=== PATIENT | male | born 1965 | race Caucasian/White ===

== ENCOUNTER 2018-01-05 12:04 | Day surgery (SDC) | payer OTHER ==
[2018-01-01 17:14] VITALS: BMI 34.4
[~2018-01-05 12:04] MED LIST: LACTATED RINGERS 1,000 ML IV SCH
[2018-01-05 12:52] VITALS: RESP 18; TEMP 97.9
[2018-01-05] MEDS ORDERED: LIDOCAINE 1% 20 ML VIAL (10MG/ML) FOR IV START INTRADERMA ONE (12:56)
[2018-01-05] MEDS ORDERED: PROPOFOL 10 MG/ML 20 ML VIAL IV ONE (14:31)
[2018-01-05] MEDS ORDERED: LIDOCAINE 1% INJ 10MG/ML (20 ML MDV) ONE (14:31)
[2018-01-05] MEDS ORDERED: LACTATED RINGERS 1,000 ML IV ONE (14:51)
--- NOTE | 2018-01-05 14:57 | P.PCN ---
Date of Procedure: 01/05/18 Procedure(s) Performed: Procedure: Total colonoscopy. Preoperative diagnosis: Screening for neoplasia. Postoperative diagnosis: Exam within normal limits. Preparation: HalfLytely prep. Sedation: Was provided by anesthesia. Brief clinical history: The patient is a 52-year-old male who is scheduled for this evaluation for screening for neoplasia age being his risk factor. There is no family history of colon cancer. At this time, he has no abdominal complaints, bleeding or anemia. This would be his first colonoscopy. Procedure: With the patient on his left lateral decubitus position and after informed consent and adequate sedation, the perianal area was inspected and it did not show any fissures or fistulas. There were no masses felt on digital rectal examination. The Olympus CFQ 160L video colonoscope was then inserted in the rectum in the usual fashion and advanced to the cecum. The mucosa appeared healthy. There were no obvious polyps or tumors seen or any obvious diverticular disease or other pathology. I retroflexed the endoscope in the rectum before the endoscope was withdrawn. The patient tolerated the procedure well. Plan: The patient was reassured. He will follow up with you as planned and I recommended repeat exam in 10 years.
[2018-01-05 15:13] VITALS: BP 142/71; PULSE 60
== END 2018-01-05 15:23 | disposition home or self-care (01) ==
LOC: ORWHC2ENDO 12:04
DX: Z12.11 Encounter for screening for malignant neoplasm of colon (principal); I10 Essential (primary) hypertension; F17.200 Nicotine dependence, unspecified, uncomplicated; Z79.899 Other long term (current) drug therapy
CPT/HCPCS: J2001; J2704; G0121

== ENCOUNTER → 2018-05-16 | Outpatient (CLI) | payer OTHER | END | disposition home or self-care (01) | LOC: LABWHC1 09:29 | PROVIDERS: ATTEND Family Medicine | DX: Z13.88 Encounter for screening for disorder due to exposure to contaminants (principal) | CPT/HCPCS: 36415; 83655 ==

== ENCOUNTER → 2019-11-24 | Outpatient (CLI) | payer OTHER ==
--- NOTE | 2019-11-29 08:26 | MR ---
EXAMINATION TYPE: MR Prostate wo/w con DATE OF EXAM: 11/24/2019 COMPARISON: None. INDICATION: prostate cancer PSA: 4.0 ng/ml on May 04, 2019 Recent Biopsy and Date: July 28, 2019. Pathology Report (If Applicable): Right lateral apex Anthony score 3+4 = 7 ; 20 percent tissue 2 mm l ength. Left lateral base Anthony score 3+4 = 7; 60% the tissue 6 mm in length. Left lobe mid Anthony score 3+4 = 7, 10% less than 1 mm length. TECHNIQUE: Examination was performed using a 3T MRI without an endorectal coil. Multiparametric imaging was perf ormed with T2 mutliplanar sequences, axial diffusion weighted imaging and dynamic contrast enhanced i maging, utilizing 11 mL intravenous Gadavist gadolinium contrast. FINDINGS: There is no clinically significant cancer identified. PROSTATE VOLUME: 3.9 cm SI x 3.3 cm AP x 4.3 cm LR Vol= 29.0 cc PSA DENSITY: 3.48 ng/ml/cc T1-weighted images show no significant residual postbiopsy hemorrhage. Peripheral zone has suspicious area lateral aspect right lateral base to mid segment showing focal m ild to moderate hypointense signal on ADC mapping image 116 with mild hyperintense signal on diffusio n weighted images measuring roughly 6 x 4 mm. Dynamic postcontrast images show no suspicious vascular ity with marked uptake and washout. Predominantly mild gradual enhancement noted. Central transition zone is somewhat small in size and heterogeneous in appearance. No definitive are a of at least moderately suspicious hypointensity. Seminal vesicles are all within normal limits. Prostatic capsule maintained. No adjacent adenopathy s een. Bladder poorly distended with trabeculation and mild to moderate wall thickening up to 9 mm. Visualized bowel shows no suspicious dilatation. Visualized osseous structures are intact. There is s uspected moderate to large sized fat-containing inguinal hernias bilaterally. No concerning pelvic fl uid collection. Moderate to advanced disc space narrowing L5-S1 level with disc desiccation. IMPRESSION: A focus of clinically significant cancer is not identified. Highest Assessment Category: 3 (peripheral zone lesion MRI Stage: T1c N0 M0 based on review of pelvic images. False negative rates for MRI range from 5-20% depending on risk profile. Assessment Categories: 1 ? Very low (clinically significant cancer is highly unlikely to be present) 2 ? Low (clinically significant cancer is unlikely to be present) 3 ? Intermediate (the presence of clinically significant cancer is equivocal) 4 ? High (clinically significant cancer is likely to be present) 5 ? Very high (clinically significant cancer is highly likely to be present) Locations: PZ = peripheral zone; TZ = transition zone CZ=central zone; AFS = anterior fibromuscular stroma a=anterior half (i.e. PZa=anterior half of peripheral zone); pm= posterior medial (i.e PZpm) pl = postero-lateral (i.e. PZpl); p = posterior half (i.e. TZp) ; a = anterior half (i.e TZa or P Za) Other: N=no or no; E= equivocal; Y=yes EPE = extraprostatic extension NVB = neurovascular bundle NA = not applicable/not available
== END | disposition home or self-care (01) ==
LOC: RADMRIMAIN 06:54
PROVIDERS: ATTEND Urology
DX: C61 Malignant neoplasm of prostate (principal)
CPT/HCPCS: 72197; A9585

== ENCOUNTER → 2020-01-28 | Outpatient (CLI) | payer OTHER ==
[2020-01-28 15:38] LABS: African American GFR (CKD) >90 (>60 ml/min/1.73 sqM); Anion Gap 8 mmol/L; Blood Urea Nitrogen 16 mg/dL (9-20); Calcium 9.7 mg/dL (8.4-10.2); Carbon Dioxide 27 mmol/L (22-30); Chloride 103 mmol/L (98-107); Glucose 94 mg/dL (74-99); Non-African American GFR(CKD) >90 (>60 ml/min/1.73 sqM); Potassium 4.5 mmol/L (3.5-5.1); Sodium 138 mmol/L (137-145)
--- NOTE | 2020-01-28 15:42 | XR ---
EXAMINATION TYPE: XR chest 2V DATE OF EXAM: 01/28/2020 COMPARISON: NONE HISTORY: Presurgical study. TECHNIQUE: Frontal and lateral views of the chest are obtained. FINDINGS: There is chronic parenchymal change without suspicious focal air space opacity, pleural ef fusion, or pneumothorax seen. The cardiac silhouette size is within normal limits. There is straight ening of spine with peak curvature near the thoracolumbar junction on lateral view. Cholecystectomy c lips are seen on lateral view. IMPRESSION: No acute cardiopulmonary process.
[2020-01-28 15:43] LABS: Basophils % (A) 0 %; Eosinophils # (A) 0.2 k/uL (0-0.7); Eosinophils % (A) 2 %; HCT 46.7 % (39.0-53.0); HGB 15.8 gm/dL (13.0-17.5); Lymphocytes # (A) 4.6 k/uL (1.0-4.8); Lymphocytes % (A) 43 %; MCH 32.2 pg (25.0-35.0); MCHC 33.8 g/dL (31.0-37.0); MCV 95.3 fL (80.0-100.0); Mean Platelet Volume 7.2; Monocytes # (A) 0.7 k/uL (0-1.0); Monocytes % (A) 7 %; Neutrophils # (A) 4.8 k/uL (1.3-7.7); Neutrophils % (A) 44 %; Platelet Count 293 k/uL (150-450); RDW 12.9 % (11.5-15.5); WBC 10.9 k/uL (3.8-10.6)
== END | disposition home or self-care (01) ==
LOC: LABPAT 15:07
PROVIDERS: ATTEND Urology
DX: Z01.818 Encounter for other preprocedural examination (principal); C61 Malignant neoplasm of prostate; I10 Essential (primary) hypertension; R05 Cough
CPT/HCPCS: 36415; 71046; 80048; 85025; 93005

== ENCOUNTER 2020-02-04 06:10 | Observation (INO) | payer OTHER ==
--- NOTE | 2020-01-24 09:36 | P.HPIHPCON ---
History of Present Illness H&P Date: 01/24/20 Chief Complaint: prostate cancer 54 -year-old male with history of 3+4 Raulito 7 prostate cancer. We discussed with him the options including surgery and radiation therapy. We discussed the risk and benefits with him of each approach. I discussed with him risk of Erectile dysfunction and urinary incontinence. I also discussed with him risk of injury to nearby organs including bowels, ureters, rectum and blood vessels. I also discussed the risk from anesthesia with him. Which included blood clots, heart attack, stroke and even . He understood all the risk and agreed to proceed with a robotic-assisted radical prostatectomy Consent for Procedure: I have explained the operation/procedure to the patient, including the risks, benefits, side effects, alternative therapies (including not receiving the proposed treatment or service), the likelihood of the patient achieving his/her goals, and potential recuperation problems for the procedure/sedation/analgesia, as well as any blood products, if indicated. I also explained to the patient the risks, benefits and side effects of the alternatives, as well as the risks related to not receiving the proposed procedure, care, treatment, or services. - Constitutional Constitutional: Denies chills, Denies fever - Cardiovascular Cardiovascular: Denies chest pain, Denies shortness of breath - Respiratory Respiratory: Denies cough, Denies 7 - Gastrointestinal Gastrointestinal: Denies abdominal pain, Denies diarrhea, Denies nausea, Denies vomiting - Genitourinary (Female) Genitourinary: Denies dysuria, Denies hematuria Past Medical History Past Medical History: Hypertension Additional Past Medical History / Comment(s): dysphagia @times, feels like food gets stuck @times History of Any Multi-Drug Resistant Organisms: None Reported Past Surgical History: Cholecystectomy, Tonsillectomy Additional Past Surgical History / Comment(s): EGD. Past Anesthesia/Blood Transfusion Reactions: No Reported Reaction, Motion Sickness Additional Past Anesthesia/Blood Transfusion Reaction / Comment(s): MOTION SICKNESS IN A PLANE Past Psychological History: No Psychological Hx Reported Smoking Status: Current every day smoker Past Alcohol Use History: Occasional Additional Past Alcohol Use History / Comment(s): SMOKES < 1/2 PPD. SMOKING FOR 30 YEARS. Past Drug Use History: None Reported - Past Family History Mother Family Medical History: Cancer Medications and Allergies Home Medications Medication Instructions Recorded Confirmed Type Lisinopril 40 mg PO DAILY 12/05/14 01/05/18 History Glucosam/Tyron-Msm1/C/Oren/Bosw 1 each PO DAILY 01/01/18 01/05/18 History [Glucosamine-Chondroitin Tablet] Allergies Allergy/AdvReac Type Severity Reaction Status Date / Time No Known Allergies Allergy Verified 01/05/18 12:44 Assessment and Plan Assessment: 54 yo male with hx of raulito 7 (3+4) prostate cancer -OR for robotic assisted prostatectomy and possible PLND
[2020-02-02 14:43] VITALS: BMI 34.1
[2020-02-04] MEDS ORDERED: LACTATED RINGERS 1,000 ML IV ONE ×3 (07:00→11:40)
[2020-02-04] MEDS ORDERED: DEXAMETHASONE SOD PHOSPHATE 10 MG/ML 1 ML VIAL IV ONE (07:15)
[2020-02-04] MEDS ORDERED: ONDANSETRON 4 MG/2 ML VIAL IVP ONE ×2 (07:15→12:00)
[2020-02-04] MEDS ORDERED: SCOPOLAMINE 1.5MG/72HR PATCH TRANSDERM ONE (07:15)
[2020-02-04] MEDS ORDERED: PROPOFOL 10 MG/ML 20 ML VIAL IV ONE (07:53)
[2020-02-04] MEDS ORDERED: ROCURONIUM BROMIDE 10 MG/ML 5 ML VIAL IV ONE (07:53)
[2020-02-04] MEDS ORDERED: MIDAZOLAM 2 MG/2 ML VIAL ONE (07:53)
[2020-02-04] MEDS ORDERED: NEOSTIGMINE 1 MG/ML 10 ML VIAL ONE (07:53)
[2020-02-04] MEDS ORDERED: PHENYLEPHRINE-0.9% NACL SYG 1 MG/10 ML SYRINGE ONE (07:53)
[2020-02-04] MEDS ORDERED: HYDROmorphone (PF) 1 MG/ML ONE (07:53)
[2020-02-04] MEDS ORDERED: LIDOCAINE 1% INJ 10MG/ML (20 ML MDV) ONE (07:53)
[2020-02-04] MEDS ORDERED: traMADol 50 MG TAB PO PRN (07:53)
[2020-02-04] MEDS ORDERED: fentaNYL (PF) 50 MCG/ML 2 ML AMP ONE (07:53)
[2020-02-04] MEDS ORDERED: VECURONIUM 10 MG VIAL IV ONE (07:53)
[2020-02-04] MEDS ORDERED: GLYCOPYRROLATE 0.2 MG/ML 2 ML VIAL ONE (07:53)
[2020-02-04] MEDS ORDERED: BUPIVACAINE (PF) 0.25% 30 ML VIAL SQ ONE ×3 (08:26)
--- NOTE | 2020-02-04 11:29 | P.OP ---
Date of Procedure: 02/04/20 Preoperative Diagnosis: prostate cancer Postoperative Diagnosis: same Procedure(s) Performed: robotic assisted laproscopic prostatectomy Anesthesia: DOE Surgeon: Edson Dahl Warehouse Logistics Coordinator #1: Rene Saunders Estimated Blood Loss (ml): 75 Pathology: other (prostate and bilateral seminal vesicles, fat over prostate) Condition: stable Disposition: PACU Indications for Procedure: 54 -year-old male with history of 3+4 Anthony 7 prostate cancer. We discussed with him the options including surgery and radiation therapy. We discussed the risk and benefits with him of each approach. I discussed with him risk of Erectile dysfunction and urinary incontinence. I also discussed with him risk of injury to nearby organs including bowels, ureters, rectum and blood vessels. I also discussed the risk from anesthesia with him. Which included blood clots, heart attack, stroke and even . He understood all the risk and agreed to proceed with a robotic-assisted radical prostatectomy Description of Procedure: After preoperative antibiotics were started, the patient was taken to the operating room. Anesthesia was induced and the patient was placed in a low lithitomy position, with adequate padding of the pressure points, shoulders, back, legs and arms. He was then prepped and draped in the standard fashion. A critical pause was performed using two patient identifiers. A 16F acosta catheter was placed to gravity drainage. A pneumo-peritoneum was created with placement of a Veress needle to 20 mm Hg without complication, and a 8 Fr trocar was placed above the umbillicus. Under direct vision a 8mm robotic ports was placed lateral to each rectus slightly below the camera port. The left iliac fossa 8mm port was placed. The right circulation assistant right iliac fossa 12mm port and right paramedian 5mm portwere placed. After the patient was placed in the trendelenberg position, the robot was then docked to the 8mm robotic ports and then each robotic arm and tower was checked in relation to the patient's legs and hands to avoid inadvertent compression. The peritoneal cavity was inspected. An inverted U-shaped incision began laterally to the left medial umbilical ligament and extended high across the midline to the right umbilical ligament. The limbs of the "U" extended to the level of the vasa on both sides. We next developed the preperitoneal space and the space of Retzius. Cautery was used to dissected the bladder away from the prostate. After the anterior bladder neck was incised and the bladder entered the the posterior bladder neck was exposed and the ureteral orifces identified. The posterior bladder neck was then incised and dissected away from the prostate. The vas and the seminal vesicles were now exposed and dissected to their insertions into the prostate and were not spared. The posterior layer of the Denonvillier's fascia was incised to enter into the plane between prostate and perirectal fat. Each lateral pedicle was controlled with clips and cautery for hemostasis. Nerve preservation was performed standard nerve sparing was performed bilaterally/ The puboprostatic ligament was incised where it inserted into the apex of the prostate and a plane between urethra and dorsal venous complex developed to expose the anterior urethral surface. The anterior wall of the urethra was transected with the cut setting a few millimeters distal to the apex of the prostate. The dorsal vein was ligated using 3-0 V lock The urethrovesical anastomosis was performed . the posterior denovillers was reapproximated using 3-0 V lock. A 6 and 6 inch 3-0 V-Lock suture was used to anastomose the urethra and bladder, starting at the 6:00 posterior position. Mucosa was secured in every stitch, to ensure a mucosa to mucosa anastomosis. The stitch was regularly cinched and the anastomosis tightened. Care was taken to not violate the ureteral orifices. The Acosta catheter was advanced, the bladder filled, and the anastomosis was tested, as described above. Anastomsis was watertight at 150 mL The periumbilical fascia was closed with 1-0-PDS suture in running fashion. All ports were closed with a subcuticular 4-0 monocryl and Dermabond. Sponge, instrument, and needle counts were correct at the end of the case x2. All specimens including prostate and lymph nodes were sent to pathology for diagnosis and will be available in a week. The patient tolerated the surgery well and without complication. He awoke without difficulty and was taken to the recovery room in stable condition
[2020-02-04] MEDS ORDERED: KETOROLAC 30 MG/ML 1 ML VIAL IVP ONE (12:04)
[2020-02-04] MEDS ORDERED: HYDROmorphone 1 MG/ML 1 ML SYRINGE IVP ONE ×2 (12:20→12:30)
[2020-02-04] MEDS ORDERED: HYDROmorphone 0.5 MG/0.5 ML SYRINGE IVP ONE (12:20)
[2020-02-04] MEDS: HEPARIN SODIUM,PORCINE 5,000 UNIT/ML 1 ML VIAL SQ SCH ×3 (13:26→23:17)
[2020-02-04] MEDS: KETOROLAC 30 MG/ML 1 ML VIAL IVP SCH ×3 (13:26→23:18)
[2020-02-04] MEDS: D5-0.45% NACL WITH KCL 20MEQ/L 1,000 ML IV SCH ×3 (13:37→23:17)
[2020-02-05] MEDS: KETOROLAC 30 MG/ML 1 ML VIAL IVP SCH ×2 (05:48→12:24)
[2020-02-05] MEDS: D5-0.45% NACL WITH KCL 20MEQ/L 1,000 ML IV SCH (07:47)
[2020-02-05] MEDS: HEPARIN SODIUM,PORCINE 5,000 UNIT/ML 1 ML VIAL SQ SCH (07:52)
[2020-02-05 12:22] VITALS: BP 131/74; PULSE 60; TEMP 98.3
[2020-02-05 12:53] VITALS: RESP 18
--- NOTE | 2020-02-05 14:18 | P.DS ---
Providers Date of admission: 02/05/20 02:14 Attending physician: Edson Dahl MD [facility] Course: Mr Zamudio is 54 yo male with hx of prostate cancer, he underwent robotic prostatectomy on 02/03. please see Op note dated 02/03 for full surgery detail. Patient was admitted to Hospital. He did well in the post operative period, he was discharge home on POD #1 with acosta. At time of discharge he was tolerating diet, ambulating and pain was well controlled Patient Condition at Discharge: Good Plan - Discharge Summary Discharge Rx Participant: Yes New Discharge Prescriptions: No Action Lisinopril 40 mg PO DAILY Multivitamin [Multivitamins Adult Gummies] 1 each PO DAILY Discharge Medication List Lisinopril 40 mg PO DAILY 12/05/14 [History] Multivitamin [Multivitamins Adult Gummies] 1 each PO DAILY 02/02/20 [History] Follow up Appointment(s)/Referral(s): Edson Dahl MD [STAFF PHYSICIAN] - 10 Days (CALL TO MAKE FOLLOW UP APPOINTMENT.) Patient Instructions/Handouts: *Surgery [facility] - Acosta Catheter Instructions, Oxybutynin (By mouth), Ibuprofen (By mouth), Tramadol (By mouth), Senna (By mouth), Acosta Catheter Placement and Care (DC), Robot Assisted Laparoscopic Prostatectomy (DC) Activity/Diet/Wound Care/Special Instructions: You may see some blood in the urine Drink plenty of fluid No heavy lifting or straining for next 6 weeks You may shower starting tomorrow, but no baths for 4 weeks Follow up in 2 week for catheter removal Continue to use your incentive spirometer at home Discharge Disposition: HOME SELF-CARE
== END 2020-02-05 15:19 | disposition home or self-care (01) ==
LOC: OR 06:10 → 5NMEDONC 11:31 → OR 02-05 02:54
PROVIDERS: ADMIT Urology; ATTEND Urology
DX: C61 Malignant neoplasm of prostate (principal); I10 Essential (primary) hypertension; F17.210 Nicotine dependence, cigarettes, uncomplicated; E66.9 Obesity, unspecified; Z68.33 Body mass index [BMI] 33.0-33.9, adult; R13.10 Dysphagia, unspecified; Z16.30 Resistance to unspecified antimicrobial drugs; Z79.899 Other long term (current) drug therapy; Z90.49 Acquired absence of other specified parts of digestive tract; Z80.9 Family history of malignant neoplasm, unspecified; Z84.89 Family history of other specified conditions
CPT/HCPCS: 55866; 86900; 86901; 86850; 88309; G0378; J2250; J1644 ×2; J1100; J2710; J0690; J2405; J2001; J3010; J1885 ×2; J1170 ×2; J2370; J2704

== ENCOUNTER 2020-02-09 13:11 | Inpatient (IN) | payer OTHER ==
--- NOTE | 2020-02-09 13:20 | US ---
EXAMINATION TYPE: US venous doppler duplex LE BI DATE OF EXAM: 02/09/2020 1:01 PM COMPARISON: NONE CLINICAL HISTORY: R22.40 Localized swelling, mass and lump.... Pain right calf. Prostate surgery last week. Shortness of breath SIDE PERFORMED: Bilateral TECHNIQUE: The lower extremity deep venous system is examined utilizing real time linear array sonog zulema with graded compression, doppler sonography and color-flow sonography. VESSELS IMAGED: External Iliac Vein (EIV) Common Femoral Vein Deep Femoral Vein Greater Saphenous Vein * Femoral Vein Popliteal Vein Small Saphenous Vein * Proximal Calf Veins (* superficial vessels) Right Leg: Positive for DVT right popliteal vein with echogenic thrombus and lack of color flow. Left Leg: Negative for DVT Preliminary results called to Dr Dahl at time of exam and patient taken to the ER IMPRESSION: 1. Positive deep venous arthrosis within the right popliteal vein. Preliminary results called to Dr Iram comer at time of exam by the wafer fab operator on 02/09/2020 and the patient taken to the emergency room. 2. No sonographic evidence of deep venous or masses within the left lower extremity.
[2020-02-09] MEDS ORDERED: ALBUTEROL NEBULIZED 2.5 MG/3 ML INHALATION STA (13:30)
--- NOTE | 2020-02-09 13:35 | ED ---
General Adult HPI - General Chief complaint: Extremity Injury, Lower Stated complaint: DVT Time Seen by Provider: 02/09/20 13:17 Source: patient, family, RN notes reviewed, old records reviewed (Outpatient ultrasound positive for right popliteal DVT) Mode of arrival: wheelchair Limitations: no limitations - History of Present Illness Initial comments: Patient is a pleasant 54-year-old male presenting to the emergency Department with complaints of right calf pain. Patient did have robotic prostate surgery 5 days ago. Patient did well following the surgery. 2 days ago patient started having some swelling and discomfort right calf. Patient also has had some shortness of breath, especially with exertion. Patient is a former smoker. Patient had outpatient ultrasound today and was sent to emergency department. No fevers. - Related Data Home Medications Medication Instructions Recorded Confirmed Lisinopril 40 mg PO DAILY 12/05/14 02/09/20 Acetaminophen [Tylenol Extra 1,000 mg PO Q8H PRN 02/09/20 02/09/20 Strength] Ibuprofen [Motrin] 600 mg PO Q8HR PRN 02/09/20 02/09/20 Allergies Allergy/AdvReac Type Severity Reaction Status Date / Time No Known Allergies Allergy Verified 02/09/20 14:21 Review of Systems ROS Statement: Those systems with pertinent positive or pertinent negative responses have been documented in the HPI. ROS Other: All systems not noted in ROS Statement are negative. Constitutional: Denies: fever, chills Eyes: Denies: eye pain ENT: Denies: ear pain Respiratory: Reports: dyspnea. Denies: cough Cardiovascular: Reports: dyspnea on exertion. Denies: chest pain Endocrine: Denies: as per HPI Gastrointestinal: Denies: abdominal pain Genitourinary: Denies: discharge Musculoskeletal: Denies: back pain Skin: Denies: rash Neurological: Denies: weakness Past Medical History Past Medical History: Hypertension, Prostate Disorder Additional Past Medical History / Comment(s): dysphagia @times, feels like food gets stuck @times History of Any Multi-Drug Resistant Organisms: None Reported Past Surgical History: Prostate Surgery Additional Past Surgical History / Comment(s): EGD. Past Anesthesia/Blood Transfusion Reactions: No Reported Reaction, Motion Sickness Additional Past Anesthesia/Blood Transfusion Reaction / Comment(s): MOTION SICKNESS IN A PLANE Past Psychological History: No Psychological Hx Reported Smoking Status: Current every day smoker Past Alcohol Use History: None Reported Past Drug Use History: None Reported - Past Family History Mother Family Medical History: Cancer General Exam Limitations: no limitations General appearance: alert, in no apparent distress Head exam: Present: normocephalic Eye exam: Present: normal appearance Neck exam: Present: normal inspection Respiratory exam: Present: rhonchi Cardiovascular Exam: Present: regular rate, normal rhythm Expanded Peripheral pulses: 2+: Posterior Tibialis (R), Posterior Tibialis (L), Dorsalis Pedis (R), Dorsalis Pedis (L) GI/Abdominal exam: Present: soft. Absent: tenderness Extremities exam: Present: tenderness (Mild tenderness right Calf) Back exam: Present: normal inspection Neurological exam: Present: alert Psychiatric exam: Present: normal affect, normal mood Skin exam: Present: normal color Course Vital Signs 02/09/20 02/09/20 02/09/20 13:13 13:45 13:55 Temperature 99.8 F H Pulse Rate 78 84 88 Respiratory 20 Rate Blood Pressure 118/80 O2 Sat by Pulse 95 Oximetry EKG Findings - EKG Comments: EKG Findings:: Normal sinus rhythm 74. WV 152. QRS 88. QT 354. QTC 392. Normal axis. Normal QRS. No acute ST change. Medical Decision Making - Medical Decision Making Patient reevaluated and resting comfortably in bed. Patient and family updated on results and plan. IV heparin started. [facility] paged for admission covering for Dr. Jacob. - Lab Data Result diagrams: 02/09/20 13:54 02/09/20 13:54 Lab Results 02/09/20 02/09/20 02/09/20 Range/Units 13:54 13:54 13:54 WBC 15.6 H (3.8-10.6) k/uL RBC 5.03 (4.30-5.90) m/uL Hgb 16.3 (13.0-17.5) gm/dL Hct 47.1 (39.0-53.0) % MCV 93.5 (80.0-100.0) fL MCH 32.4 (25.0-35.0) pg MCHC 34.6 (31.0-37.0) g/dL RDW 12.4 (11.5-15.5) % Plt Count 229 (150-450) k/uL Neutrophils % 68 % Lymphocytes % 18 % Monocytes % 8 % Eosinophils % 3 % Basophils % 0 % Neutrophils # 10.6 H (1.3-7.7) k/uL Lymphocytes # 2.9 (1.0-4.8) k/uL Monocytes # 1.2 H (0-1.0) k/uL Eosinophils # 0.5 (0-0.7) k/uL Basophils # 0.1 (0-0.2) k/uL PT 10.0 (9.0-12.0) sec INR 1.0 (<1.2) APTT 22.8 (22.0-30.0) sec Sodium 134 L (137-145) mmol/L Potassium 5.0 (3.5-5.1) mmol/L Chloride 100 (98-107) mmol/L Carbon Dioxide 24 (22-30) mmol/L Anion Gap 10 mmol/L BUN 15 (9-20) mg/dL Creatinine 0.85 (0.66-1.25) mg/dL Est GFR (CKD-EPI)AfAm >90 (>60 ml/min/1.73 sqM) Est GFR (CKD-EPI)NonAf >90 (>60 ml/min/1.73 sqM) Glucose 96 (74-99) mg/dL Plasma Lactic Acid Rene (0.7-2.0) mmol/L Calcium 10.0 (8.4-10.2) mg/dL Magnesium 1.8 (1.6-2.3) mg/dL Total Bilirubin 0.7 (0.2-1.3) mg/dL AST 34 (17-59) U/L ALT 41 (4-49) U/L Alkaline Phosphatase 67 (38-126) U/L Total Protein 7.5 (6.3-8.2) g/dL Albumin 4.6 (3.5-5.0) g/dL 02/09/20 Range/Units 13:54 WBC (3.8-10.6) k/uL RBC (4.30-5.90) m/uL Hgb (13.0-17.5) gm/dL Hct (39.0-53.0) % MCV (80.0-100.0) fL MCH (25.0-35.0) pg MCHC (31.0-37.0) g/dL RDW (11.5-15.5) % Plt Count (150-450) k/uL Neutrophils % % Lymphocytes % % Monocytes % % Eosinophils % % Basophils % % Neutrophils # (1.3-7.7) k/uL Lymphocytes # (1.0-4.8) k/uL Monocytes # (0-1.0) k/uL Eosinophils # (0-0.7) k/uL Basophils # (0-0.2) k/uL PT (9.0-12.0) sec INR (<1.2) APTT (22.0-30.0) sec Sodium (137-145) mmol/L Potassium (3.5-5.1) mmol/L Chloride (98-107) mmol/L Carbon Dioxide (22-30) mmol/L Anion Gap mmol/L BUN (9-20) mg/dL Creatinine (0.66-1.25) mg/dL Est GFR (CKD-EPI)AfAm (>60 ml/min/1.73 sqM) Est GFR (CKD-EPI)NonAf (>60 ml/min/1.73 sqM) Glucose (74-99) mg/dL Plasma Lactic Acid Rene 0.9 (0.7-2.0) mmol/L Calcium (8.4-10.2) mg/dL Magnesium (1.6-2.3) mg/dL Total Bilirubin (0.2-1.3) mg/dL AST (17-59) U/L ALT (4-49) U/L Alkaline Phosphatase (38-126) U/L Total Protein (6.3-8.2) g/dL Albumin (3.5-5.0) g/dL - Radiology Data Radiology results: report reviewed (Computed tomography scan the chest positive for bilateral pulmonary embolism as discussed with Dr. Bhandari) Critical Care Time Critical Care Time: Yes Total Critical Care Time: 33 Disposition Clinical Impression: Bilateral pulmonary embolism Disposition: ADMITTED IP TO THIS [facility] Condition: Serious Is patient prescribed a controlled substance at d/c from ED?: No Referrals: Tiffanie Lemos MD [Primary Care Provider] - 1-2 days Decision Time: 14:52
[2020-02-09 14:17] LABS: Basophils # (A) 0.1 k/uL (0-0.2); Basophils % (A) 0 %; Eosinophils # (A) 0.5 k/uL (0-0.7); Eosinophils % (A) 3 %; HCT 47.1 % (39.0-53.0); HGB 16.3 gm/dL (13.0-17.5); Lymphocytes # (A) 2.9 k/uL (1.0-4.8); Lymphocytes % (A) 18 %; MCH 32.4 pg (25.0-35.0); MCHC 34.6 g/dL (31.0-37.0); MCV 93.5 fL (80.0-100.0); Mean Platelet Volume 7.4; Monocytes # (A) 1.2 k/uL (0-1.0); Monocytes % (A) 8 %; Neutrophils # (A) 10.6 k/uL (1.3-7.7); Neutrophils % (A) 68 %; Platelet Count 229 k/uL (150-450); RBC 5.03 m/uL (4.30-5.90); RDW 12.4 % (11.5-15.5); WBC 15.6 k/uL (3.8-10.6)
[2020-02-09 14:25] LABS: Partial Thromboplastin Time 22.8 sec (22.0-30.0)
[2020-02-09 14:28] LABS: ALT 41 U/L (4-49); AST 34 U/L (17-59); African American GFR (CKD) >90 (>60 ml/min/1.73 sqM); Albumin 4.6 g/dL (3.5-5.0); Alkaline Phosphatase 67 U/L (38-126); Anion Gap 10 mmol/L; Blood Urea Nitrogen 15 mg/dL (9-20); Carbon Dioxide 24 mmol/L (22-30); Chloride 100 mmol/L (98-107); Glucose 96 mg/dL (74-99); Magnesium 1.8 mg/dL (1.6-2.3); Non-African American GFR(CKD) >90 (>60 ml/min/1.73 sqM); Sodium 134 mmol/L (137-145); Total Bilirubin 0.7 mg/dL (0.2-1.3); Total Protein 7.5 g/dL (6.3-8.2)
[2020-02-09] MEDS ORDERED: HEPARIN SODIUM,PORCINE 5,000 UNIT/ML 1 ML VIAL IV PRN (14:38)
[2020-02-09] MEDS ORDERED: HEPARIN SODIUM,PORCINE 10,000 UNIT/ML 1 ML VIAL IV ONE (14:38)
--- NOTE | 2020-02-09 14:40 | CT ---
EXAMINATION TYPE: CT angio chest DATE OF EXAM: 02/09/2020 COMPARISON: NONE HISTORY: Post OP Prostate removal 5 days. Shortness of breath with Right leg DVT CT DLP: 680.6 mGycm. Automated Exposure Control for Dose Reduction was Utilized. CONTRAST: CTA scan of the thorax is performed with IV Contrast, patient injected with 100 mL of Isovue 370, pul monary embolism protocol. MIP Images are created on CT scanner and reviewed. FINDINGS: LUNGS: Mild emphysematous changes of the lung apices are paraseptal. 4 mm left upper lobe pulmonary n odule is marked on image 4. Lingular and bibasilar atelectasis are seen. Somewhat rounded configurati on of probable right basilar atelectasis versus small pulmonary nodule measuring 1.1 cm. The lungs ar e grossly clear, there is no concerning parenchymal mass or nodule identified. There is no pleural effusion or pneumothorax seen. The tracheobronchial tree is patent. MEDIASTINUM: There are bilateral pulmonary emboli beginning at the bifurcations of the right and left main pulmonary arteries extending into the segmental and subsegmental branches to the right upper lo be, right lower lobe, and right middle lobe as well as in the lingula and left lower lobe. The left u pper lobe is spared. The main pulmonary artery is nonenlarged measuring 2.6 cm. There is no abnormal right ventricular to left ventricular ratio. No reflux of contrast into the inferior vena cava or hep atic veins. No CT evidence of right heart strain. There are no greater than 1 cm hilar or mediastinal lymph nodes. No cardiomegaly or pericardial eff usion is seen. Bolus timing limits evaluation for coronary calcifications. No gross evidence of coron ferdinand artery calcifications seen. OTHER: Low attenuation of the hepatic parenchyma relates to hepatic steatosis, which limits evaluatio n for hepatic masses. Gallbladder is surgically absent. Moderate degenerative changes of the glenohum eral joints are seen. Mild to moderate degenerative changes of the visualized thoracolumbar spine. IMPRESSION: 1. Acute bilateral pulmonary emboli to all the pulmonary lobes except the left upper lobe in the segm ental and subsegmental pulmonary arteries. No CT evidence of right heart strain. Findings were discus sed with the ordering ER physician Dr. Alvarez on 02/09/[address] Bhandari. 2. 4 mm left upper lobe pulmonary nodule and right basilar rounded atelectasis measuring 1.1 cm versu s nodule. Short-term follow-up CT could be performed after resolution of acute symptoms for reevaluat ion.
[2020-02-09] MEDS ORDERED: HEPARIN SOD,PORK IN 0.45% NACL 25,000 UNIT in 0.45% NACL 1 250ML.BAG IV SCH (14:45)
[2020-02-09] MEDS ORDERED: NALOXONE 0.4 MG/ML 1 ML VIAL IV PRN (14:52)
[2020-02-09] MEDS ORDERED: MORPHINE SULFATE 4 MG/ML SYRINGE IVP STA (15:45)
[2020-02-09] MEDS ORDERED: APIXABAN 5 MG TAB PO STA (18:04)
[2020-02-09] MEDS ORDERED: ACETAMINOPHEN TAB 500 MG TAB PO PRN (18:11)
--- NOTE | 2020-02-09 18:15 | P.HPIM ---
History of Present Illness H&P Date: 02/09/20 The patient is a 54-year-old obese male with a past medical history of essential hypertensio, 3_4 [place] 7 prostate cancer who presents to the ER by private vehicle after being referred by his urologist with right calf pain. Apparently the patient had a robotic-assisted laparoscopic prostatectomy 02/04/20 and was discharged by Dr. Dahl with minimal consultations postoperatively on 02/04 with a Lennon catheter and scheduled for follow-up on Friday02/14/20. Earlier this week on Friday the patient began having some left leg weakness, swelling and moderate to severe calf pain that gradually increased in intensity as a week progressed, today the pain was extremely severe and the patient noted some associated shortness of breath and difficulty breathing, he denied any subjective fevers chills or night sweats. The patient denied chest pain or pressure no previous history of DVT, the patient reports that he's been awaiting results of his pathology. In the ER the patient a comprehensive workup left lower extremity venous Doppler was positive for DVT of the right popliteal vein and subsequent CTA of the chest showed acute bilateral pulmonary emboli to all the pulmonary lobes except the left upper lobe, with negative CT evidence for right heart strain. There is as 4 mm left upper lobe pulmonary nodule. Review of Systems Pertinent positives per HPI all other review of system is otherwise negative Past Medical History Past Medical History: Hypertension, Prostate Disorder Additional Past Medical History / Comment(s): dysphagia @times, feels like food gets stuck @times History of Any Multi-Drug Resistant Organisms: None Reported Past Surgical History: Prostate Surgery Additional Past Surgical History / Comment(s): EGD. Past Anesthesia/Blood Transfusion Reactions: No Reported Reaction, Motion Sickness Additional Past Anesthesia/Blood Transfusion Reaction / Comment(s): MOTION SICKNESS IN A PLANE Past Psychological History: No Psychological Hx Reported Smoking Status: Current every day smoker Past Alcohol Use History: None Reported Additional Past Alcohol Use History / Comment(s): SMOKES < 1/2 PPD. SMOKING FOR 30 YEARS. Past Drug Use History: None Reported - Past Family History Mother Family Medical History: Cancer Medications and Allergies Home Medications Medication Instructions Recorded Confirmed Type Lisinopril 40 mg PO DAILY 12/05/14 02/09/20 History Acetaminophen [Tylenol Extra 1,000 mg PO Q8H PRN 02/09/20 02/09/20 History Strength] Ibuprofen [Motrin] 600 mg PO Q8HR PRN 02/09/20 02/09/20 History Allergies Allergy/AdvReac Type Severity Reaction Status Date / Time No Known Allergies Allergy Verified 02/09/20 14:21 Physical Exam Vitals: Vital Signs Temp Pulse Pulse Resp BP BP Pulse Ox 02/09/20 16:00 86 20 02/09/20 15:44 98.4 F 76 20 117/77 95 02/09/20 15:07 99.3 F 77 19 131/79 98 02/09/20 13:55 88 02/09/20 13:45 84 02/09/20 13:13 99.8 F H 78 20 118/80 95 Intake and Output 02/09/20 02/09/20 02/09/20 06:59 14:59 22:59 Other: Voiding Method Indwelling Catheter Weight 106.594 kg 106.594 kg Constitutional: No acute distress, conversant, pleasant Eyes: Anicteric sclerae, moist conjunctiva, no lid-lag, PERRLA ENMT: NC/AT,Oropharynx clear, no erythema, exudates Neck:Supple, FROM, no masses, or JVD, No carotid bruits; No thyromegaly Lungs: Clear to auscultation, Clear to percussion, Normal respiratory effort, no accessory muscle use Cardiovascular: Heart regular in rate and rhythm, No murmurs, gallops, or rubs no peripheral edema Abdominal: Soft Nontender, nom distended, no guarding, no rebound or rigidity, Normoactive bowel sounds No hepatomegaly, No splenomegaly, No palpable mass No abdominal wall hernia noted Skin: Normal temperature, tone, texture, turgor, No induration No subcutaneous nodules, No rash, lesions, No ulcers Extremities:No digital cyanosis No clubbing, Pedal pulses intact and symmetrical Radial pulses intact and symmetrical Normal gait and station, No calf tenderness Psychiatric: Alert and oriented to person, place and time, Appropriate affect Intact judgement Neuro: Muscles Strength 5/5 in all 4 extremities, Sensation to light touch grossly present throughout, Cranial nerves II-XII grossly intact. No focal sensory deficits Results CBC & Chem 7: 02/09/20 13:54 02/09/20 13:54 Labs: Abnormal Lab Results - Last 24 Hours (Table) 02/09/20 02/09/20 Range/Units 13:54 13:54 WBC 15.6 H (3.8-10.6) k/uL Neutrophils # 10.6 H (1.3-7.7) k/uL Monocytes # 1.2 H (0-1.0) k/uL Sodium 134 L (137-145) mmol/L Thrombosis Risk Factor Assmnt - Choose All That Apply Any of the Below Risk Factors Present?: Yes Each Factor Represents 1 point: Age 41-60 years Each Risk Factor Represents 3 Points: History of DVT/PE Thrombosis Risk Factor Assessment Total Risk Factor Score: 4 Thrombosis Risk Factor Assessment Level: Moderate Risk Assessment and Plan Assessment: Acute bilateral pulmonary embolism Right popliteal vein DVT Essential hypertension Prostate cancer status post laparoscopic prostatectomy Leukocytosis Mild hyponatremia Plan: The patient is admitted anticipated in 2 midnight stay with acute thromboembolic disease post laparoscopic prostatectomy 02/03 with imaging evidence of right popliteal DVT and acute bilateral PE , the patient was started on heparin drip per protocol this will be discontinued and the patient will be transitioned to DOAC with ELiquis with plans for consultation to hematology oncology. Risk factors for DVT include history of prostate cancer and immobility postsurgery . We'll continue to follow the patient's clinical course and follow up with consultants recommendations. CODE STATUS: Full code anticipated discharge place : Home discussed plan of care with : Patient enters approximately 60 minutes was spent in the evaluation & documentation of this patient
--- NOTE | 2020-02-09 18:59 | P.GSCN ---
History of Present Illness Consult date: 02/09/20 Reason for Consult: S/P robotic prostatectomy History of present illness: Mr Zamudio is a 54-year-old male S/P robotic-assisted laparoscopic prostatectomy on 02/04/20, no operative complication. He was discharged home on POD #1. He indicated for the past 2 days he is been complaining of right calf pain. He indicated that his calf pain is associated with shortness of breath and difficulty breathing. He underwent a venous duplex which showed DVT of the right popliteal vein and subsequent CTA of the chest showed acute bilateral pulmonary emboli to all the pulmonary lobes except the left upper lobe, He denies any abdominal pain at this time, also denies any fever/chills. He indicated that his acosta has been draining clear yellow urine Review of Systems - Constitutional Denies chills, Denies fever - EENT Ears, nose, mouth and throat: Denies dysphagia, Denies headache - Cardiovascular Reports dyspnea on exertion, Reports shortness of breath, Denies chest pain - Gastrointestinal Denies abdominal pain, Denies nausea, Denies vomiting - Musculoskeletal Denies low back pain, Denies muscle weakness - Integumentary Denies rash, Denies unusual bruising - Neurological Denies headaches, Denies syncope Past Medical History Past Medical History: Hypertension, Prostate Disorder Additional Past Medical History / Comment(s): dysphagia @times, feels like food gets stuck @times History of Any Multi-Drug Resistant Organisms: None Reported Past Surgical History: Prostate Surgery Additional Past Surgical History / Comment(s): EGD. Past Anesthesia/Blood Transfusion Reactions: No Reported Reaction, Motion Sickness Additional Past Anesthesia/Blood Transfusion Reaction / Comm: MOTION SICKNESS IN A PLANE Past Psychological History: No Psychological Hx Reported Smoking Status: Current every day smoker Past Alcohol Use History: None Reported Additional Past Alcohol Use History / Comment(s): SMOKES < 1/2 PPD. SMOKING FOR 30 YEARS. Past Drug Use History: None Reported - Past Family History Mother Family Medical History: Cancer Medications and Allergies Home Medications Medication Instructions Recorded Confirmed Type Lisinopril 40 mg PO DAILY 12/05/14 02/09/20 History Acetaminophen [Tylenol Extra 1,000 mg PO Q8H PRN 02/09/20 02/09/20 History Strength] Ibuprofen [Motrin] 600 mg PO Q8HR PRN 02/09/20 02/09/20 History Allergies Allergy/AdvReac Type Severity Reaction Status Date / Time No Known Allergies Allergy Verified 02/09/20 14:21 Surgical - Exam Vital Signs Temp Pulse Resp BP Pulse Ox 99.8 F H 78 20 118/80 95 02/09/20 13:13 02/09/20 13:13 02/09/20 13:13 02/09/20 13:13 02/09/20 13:13 - General well developed, well nourished, no pain - Eyes normal ocular movement, no pale - ENT normal nares, normal mucosa, no hearing loss - Respiratory normal expansion, normal respiratory effort - Abdomen Abdomen: soft, non tender, no distended - Psychiatric oriented to time, oriented to person, oriented to place, speech is normal Results - Labs 02/09/20 13:54 02/09/20 13:54 Abnormal Lab Results - Last 24 Hours (Table) 02/09/20 02/09/20 Range/Units 13:54 13:54 WBC 15.6 H (3.8-10.6) k/uL Neutrophils # 10.6 H (1.3-7.7) k/uL Monocytes # 1.2 H (0-1.0) k/uL Sodium 134 L (137-145) mmol/L Diabetes panel 02/09/20 Range/Units 13:54 Sodium 134 L (137-145) mmol/L Potassium 5.0 (3.5-5.1) mmol/L Chloride 100 (98-107) mmol/L Carbon Dioxide 24 (22-30) mmol/L BUN 15 (9-20) mg/dL Creatinine 0.85 (0.66-1.25) mg/dL Glucose 96 (74-99) mg/dL Calcium 10.0 (8.4-10.2) mg/dL AST 34 (17-59) U/L ALT 41 (4-49) U/L Alkaline Phosphatase 67 (38-126) U/L Total Protein 7.5 (6.3-8.2) g/dL Albumin 4.6 (3.5-5.0) g/dL Calcium panel 02/09/20 Range/Units 13:54 Calcium 10.0 (8.4-10.2) mg/dL Albumin 4.6 (3.5-5.0) g/dL Pituitary panel 02/09/20 Range/Units 13:54 Sodium 134 L (137-145) mmol/L Potassium 5.0 (3.5-5.1) mmol/L Chloride 100 (98-107) mmol/L Carbon Dioxide 24 (22-30) mmol/L BUN 15 (9-20) mg/dL Creatinine 0.85 (0.66-1.25) mg/dL Glucose 96 (74-99) mg/dL Calcium 10.0 (8.4-10.2) mg/dL Adrenal panel 02/09/20 Range/Units 13:54 Sodium 134 L (137-145) mmol/L Potassium 5.0 (3.5-5.1) mmol/L Chloride 100 (98-107) mmol/L Carbon Dioxide 24 (22-30) mmol/L BUN 15 (9-20) mg/dL Creatinine 0.85 (0.66-1.25) mg/dL Glucose 96 (74-99) mg/dL Calcium 10.0 (8.4-10.2) mg/dL Total Bilirubin 0.7 (0.2-1.3) mg/dL AST 34 (17-59) U/L ALT 41 (4-49) U/L Alkaline Phosphatase 67 (38-126) U/L Total Protein 7.5 (6.3-8.2) g/dL Albumin 4.6 (3.5-5.0) g/dL Assessment and Plan Assessment: 54 yo male with hx of prostate cancer S/P robotic prostatectomy on 02/03. He presented to the ED with RLE DVT and bilateral PE Plan: -Continue anticogulation -Keep acosta in place, monitor UO. We anticipate patient to have gross hematuria given his recent prostate surgery and anticoagulation
[2020-02-09] MEDS: APIXABAN 5 MG TAB PO SCH (19:07)
[2020-02-10] MEDS: MORPHINE SULFATE 4 MG/ML SYRINGE IVP PRN ×3 (00:45→08:47)
[2020-02-10 07:46] LABS: Basophils % (A) 0 %; Eosinophils # (A) 0.6 k/uL (0-0.7); Eosinophils % (A) 3 %; HCT 46.8 % (39.0-53.0); Lymphocytes % (A) 17 %; MCH 32.4 pg (25.0-35.0); MCHC 34.1 g/dL (31.0-37.0); Mean Platelet Volume 7.5; Monocytes # (A) 1.3 k/uL (0-1.0); Monocytes % (A) 7 %; Neutrophils % (A) 70 %; Platelet Count 249 k/uL (150-450); RBC 4.93 m/uL (4.30-5.90); RDW 12.5 % (11.5-15.5); WBC 17.3 k/uL (3.8-10.6)
[2020-02-10 08:09] LABS: Prothrombin Time 10.4 sec (9.0-12.0)
[2020-02-10] MEDS: APIXABAN 5 MG TAB PO SCH (08:51)
[2020-02-10] MEDS ORDERED: LISINOPRIL 20 MG TAB PO SCH (09:00)
--- NOTE | 2020-02-10 10:03 | P.PN ---
Subjective Progress Note Date: 02/10/20 Still complaining of Shortness of breath and is complaining of right pleuretic chest pain this am. No gross hematuria or abdominal pain. tolerating a diet, no N/V. Objective - Vital Signs Vital signs: Vital Signs Temp 98.5 F 02/10/20 07:47 Pulse 68 02/10/20 07:47 Resp 18 02/10/20 07:47 BP 127/78 02/10/20 07:47 Pulse Ox 93 L 02/10/20 07:47 Intake & Output 02/09/20 02/10/20 02/10/20 18:59 06:59 18:59 Intake Total 240 120 Output Total 1100 Balance 240 -980 Weight 106.594 kg 101.5 kg Intake: Oral 240 120 Output: Urine 1100 Other: Voiding Method Indwelling Catheter Indwelling Catheter - Constitutional General appearance: Present: mild distress - Gastrointestinal General gastrointestinal: Present: soft. Absent: distended, rigid - Labs CBC & Chem 7: 02/10/20 07:16 02/09/20 13:54 Labs: Abnormal Lab Results - Last 24 Hours (Table) 02/09/20 02/09/20 02/09/20 Range/Units 13:54 13:54 20:36 WBC 15.6 H (3.8-10.6) k/uL Neutrophils # 10.6 H (1.3-7.7) k/uL Monocytes # 1.2 H (0-1.0) k/uL APTT 41.3 H (22.0-30.0) sec Sodium 134 L (137-145) mmol/L 02/10/20 Range/Units 07:16 WBC 17.3 H (3.8-10.6) k/uL Neutrophils # 12.0 H (1.3-7.7) k/uL Monocytes # 1.3 H (0-1.0) k/uL APTT (22.0-30.0) sec Sodium (137-145) mmol/L Assessment and Plan Assessment: 54 yo male with hx of prostate cancer S/P robotic prostatectomy on 02/03. He presented to the ED with RLE DVT and bilateral PE Plan: -Continue anticogulation -Keep acosta in place, monitor UO. We anticipate patient to have gross hematuria given his recent prostate surgery and anticoagulation -Will keep f/u for acosta removal for Friday
[2020-02-10] MEDS: HYDROcodone/APAP 5-325MG 1 EACH TAB PO PRN ×3 (10:22→19:06)
[2020-02-10] MEDS: IBUPROFEN 600 MG TAB PO SCH ×2 (10:24→19:15)
[2020-02-10] MEDS ORDERED: LIDOCAINE 5% PATCH TOPICAL SCH (11:00)
[2020-02-10 11:30] VITALS: RESP 16
--- NOTE | 2020-02-10 13:44 | P.CONS ---
History of Present Illness - Reason for Consult Consult date: 02/10/20 PE Requesting physician: Rubén Jaramillo - Chief Complaint Calf pain and SOB - History of Present Illness Mr Zamudio is a 54-year-old male who recently underwent robotic-assisted laparoscopic prostatectomy on 02/04/20. He was discharged after surgical intervention without immediate complications. He stated over the first couple days at home he had intermittent calf pain. The past couple days increased shortness of breath especially with exertion. He presented to emergency with these complaints He was ordered a LE doppler and a DVT of the right popliteal vein was in fact identified. Therefore a CTA was ordered and revealed acute bilateral pulmonary emboli therefore he was admitted to [facility] for further recommendations. We have been consulted regarding the th rombolic events, although provoked by surgical intervention, rare with a minimally invasive surgery to present with this amount of thrombosis. CTA did reveal a subcentimeter nodule, unknown etiology and too small to characterize. He denies personal or family history of thrombolic events. He was started on Eliquis and tolerating well. Review of Systems A 14 point review of systems was assessed and completed and are all negative except for HPI Past Medical History Past Medical History: Hypertension, Prostate Disorder Additional Past Medical History / Comment(s): dysphagia @times, feels like food gets stuck @times History of Any Multi-Drug Resistant Organisms: None Reported Past Surgical History: Prostate Surgery Additional Past Surgical History / Comment(s): EGD. Past Anesthesia/Blood Transfusion Reactions: No Reported Reaction, Motion Sickness Additional Past Anesthesia/Blood Transfusion Reaction / Comm: MOTION SICKNESS IN A PLANE Past Psychological History: No Psychological Hx Reported Smoking Status: Current every day smoker Past Alcohol Use History: None Reported Additional Past Alcohol Use History / Comment(s): SMOKES < 1/2 PPD. SMOKING FOR 30 YEARS. Past Drug Use History: None Reported - Past Family History Mother Family Medical History: Cancer Medications and Allergies Home Medications Medication Instructions Recorded Confirmed Type Lisinopril 40 mg PO DAILY 12/05/14 02/09/20 History Acetaminophen [Tylenol Extra 1,000 mg PO Q8H PRN 02/09/20 02/09/20 History Strength] Ibuprofen [Motrin] 600 mg PO Q8HR PRN 02/09/20 02/09/20 History Allergies Allergy/AdvReac Type Severity Reaction Status Date / Time No Known Allergies Allergy Verified 02/09/20 14:21 Physical Exam Vitals: Vital Signs Temp Pulse Pulse Resp BP BP Pulse Ox 02/10/20 11:29 98.9 F 67 16 113/71 92 L 02/10/20 07:47 98.5 F 68 18 127/78 93 L 02/10/20 04:00 75 14 02/10/20 03:43 98.5 F 75 14 125/86 94 L 02/09/20 23:50 62 16 02/09/20 23:44 98.3 F 62 16 126/82 95 02/09/20 20:04 98.4 F 77 14 136/86 94 L 02/09/20 20:00 77 14 02/09/20 16:00 86 20 02/09/20 15:44 98.4 F 76 20 117/77 95 02/09/20 15:07 99.3 F 77 19 131/79 98 02/09/20 13:55 88 02/09/20 13:45 84 02/09/20 13:13 99.8 F H 78 20 118/80 95 Intake and Output 02/09/20 02/10/20 02/10/20 22:59 06:59 14:59 Intake Total 240 120 240 Output Total 1100 1100 Balance 240 -980 -860 Intake: Oral 240 120 240 Output: Urine 1100 1100 Other: Voiding Method Indwelling Catheter Indwelling Catheter Indwelling Catheter Weight 106.594 kg 101.5 kg General: Alert and Oriented x3, No Acute Distress Head: Normocytic, Atraumatic Neck: Supple Mouth: No Lesions, No Thrush Eyes: Non-sclerotic No Palpable cervical, supraclavicular, axillary adenopathy Heart: Regular Rate, Regular Rhythm Lungs: Clear to Ausculations, No Wheeze, No Rhonchi, Diminishe bilateral lower lobes, No increased respiratory effort noted Abdomen: Soft, Non-Distended, Non-Tended, BSx4 Extremities: No Edema, Equal Strength Neurological: No Focal Defects: No sensory or motor deficits noted Psych: Calm and cooperative Results CBC & Chem 7: 02/10/20 07:16 02/09/20 13:54 Labs: Abnormal Lab Results - Last 24 Hours (Table) 02/09/20 02/09/20 02/09/20 Range/Units 13:54 13:54 20:36 WBC 15.6 H (3.8-10.6) k/uL Neutrophils # 10.6 H (1.3-7.7) k/uL Monocytes # 1.2 H (0-1.0) k/uL APTT 41.3 H (22.0-30.0) sec Sodium 134 L (137-145) mmol/L 02/10/20 Range/Units 07:16 WBC 17.3 H (3.8-10.6) k/uL Neutrophils # 12.0 H (1.3-7.7) k/uL Monocytes # 1.3 H (0-1.0) k/uL APTT (22.0-30.0) sec Sodium (137-145) mmol/L Assessment and Plan Plan: Assessment and Recommendations: Provoked Thombolic Events: Pulmonary Emboli and DVT: - Agree with Eliquis and discharge home on this - Follow-up for cc check and monitoring in 4 weeks - Would consider hypercoaguable work-up as outpatient for extent of Pulmonary Emboli and DVT from minimal invasive surgery. At that time timeframe for AC therapy can be determined - Recommend metastatic prostate cancer work-up - PSA - CT abdomen and Pelvis Physician Attestation: I have performed the full physical examination and reviewed the full history of this patient, as well as pertinent findings. I have created the compled impression and recommendations. I agree with the above dictation by CHUY Crane. This dictation has been written as a scribe.
[2020-02-10] MEDS: IOPAMIDOL CONTRAST (ORAL USE) VIAL PO PRN ×2 (14:43→15:30)
[2020-02-10 15:27] VITALS: BP 97/66; PULSE 73; TEMP 97.9
--- NOTE | 2020-02-10 15:48 | ECHOF ---
Referral Reason:pe/ r/o heart strain MEASUREMENTS -------- HEIGHT: 177.8 cm WEIGHT: 101.2 kg BP: 127/78 RVIDd: 3.9 cm (< 3.3) IVSd: 1.4 cm (0.6 - 1.1) LVIDd: 4.6 cm (3.9 - 5.3) LVPWd: 1.3 cm (0.6 - 1.1) IVSs: 2.0 cm LVIDs: 3.1 cm LVPWs: 1.6 cm LA Diam: 3.0 cm (2.7 - 3.8) LAESV Index (A-L): 24.50 ml/m Ao Diam: 3.7 cm (2.0 - 3.7) AV Cusp: 2.4 cm (1.5 - 2.6) MV E Miquel: 0.92 m/s MV DecT: 202 ms MV A Miquel: 0.64 m/s MV E/A Ratio: 1.44 RAP: 5.00 mmHg RVSP: 23.88 mmHg TAPSE: 25.55 mm FINDINGS -------- Sinus rhythm. This was a technically adequate study. The left ventricular size is normal. There is mild concentric left ventricular hypertrophy. Overa ll left ventricular systolic function is normal with, an EF between 55 - 60 %. The right ventricle is moderately enlarged. Normal LA size by volume 22+/-6 ml/m2. The right atrial size is normal. Interatrial and interventricular septum intact. The aortic valve is trileaflet, and appears structurally normal. No aortic stenosis or regurgitation. The mitral valve is normal. There is trace to mild mitral regurgitation. Mild tricuspid regurgitation present. Right ventricular systolic pressure is normal at < 35 mmHg. Trace/mild (physiologic) pulmonic regurgitation. The aortic root size is normal. Normal inferior vena cava with normal inspiratory collapse consistent with estimated right atrial pre ssure of 5 mmHg. There is no pericardial effusion. CONCLUSIONS -------- 1. There is mild concentric left ventricular hypertrophy. 2. Overall left ventricular systolic function is normal with, an EF between 55 - 60 %. 3. The right ventricle is moderately enlarged. 4. Normal LA size by volume 22+/-6 ml/m2. 5. The aortic valve is trileaflet, and appears structurally normal. No aortic stenosis or regurgitati on. 6. There is trace to mild mitral regurgitation. 7. Mild tricuspid regurgitation present. 8. Right ventricular systolic pressure is normal at < 35 mmHg. 9. Trace/mild (physiologic) pulmonic regurgitation. 10. Normal inferior vena cava with normal inspiratory collapse consistent with estimated right atrial pressure of 5 mmHg. 11. There is no pericardial effusion. P[employer] PLANT ASSISTANT: Karen Sanz RDCS
--- NOTE | 2020-02-10 17:24 | CT ---
EXAMINATION TYPE: CT abdomen pelvis w con DATE OF EXAM: 02/10/2020 COMPARISON: Non HISTORY: Metastatic work up, hx of prostate CA CT DLP: 1923.3 mGycm CONTRAST: CT scan of the abdomen and pelvis is performed with Oral Contrast and with IV Contrast, patient injec xu with 80 mL of Isovue 300. FINDINGS: LUNG BASES-: No visible nodule. No infiltrate. LIVER/GB: Cholecystectomy changes noted. No space occupying hepatic lesion. Biliary tree is of nor mal caliber. PANCREAS: No inflammation. No distinct mass. SPLEEN: No splenic enlargement. No lesion seen. ADRENALS: No nodule. No thickening. KIDNEYS/BLADDER: No hydronephrosis. No nephrolithiasis. No distinct renal mass. Urinary bladder g rossly unremarkable. BOWEL: Normal appendix. Normal bowel caliber. No inflammation. GENITAL ORGANS: Prostatectomy changes noted. Postoperative changes are seen within the pelvis. Small focus of air at the prostatectomy site is likely postoperative in nature. Air is seen within the uri nary bladder with Lennon catheter in place. LYMPH NODES: No greater than 1cm abdominal or pelvic lymph nodes are appreciated. AORTA: No significant abnormality. OSSEOUS STRUCTURES: Degenerative changes lumbar spine. Grade 1 anterolisthesis L5 on S1. No definite bony metastases seen. OTHER: Bilateral fat containing inguinal hernias seen. IMPRESSION: 1. Postoperative changes of prostatectomy is noted. No definite evidence of metastatic disease at thi s time.
== END 2020-02-10 19:20 | disposition home or self-care (01) | DRG 176 ==
LOC: EC 13:11 → 3SCARD 14:52
PROVIDERS: ADMIT Internal Medicine; ATTEND Internal Medicine
DX: I26.99 Other pulmonary embolism without acute cor pulmonale (principal); E87.1 Hypo-osmolality and hyponatremia; I82.431 Acute embolism and thrombosis of right popliteal vein; C61 Malignant neoplasm of prostate; E66.9 Obesity, unspecified; F17.200 Nicotine dependence, unspecified, uncomplicated; I10 Essential (primary) hypertension; D72.829 Elevated white blood cell count, unspecified; R91.1 Solitary pulmonary nodule; Z68.32 Body mass index [BMI] 32.0-32.9, adult; Z79.899 Other long term (current) drug therapy; Z90.79 Acquired absence of other genital organ(s); Z80.9 Family history of malignant neoplasm, unspecified
CPT/HCPCS: 36415; 71275; 74177; 80053; 82565; 83605; 83735; 83880; 84153; 84484; 84520; 85025; 85610; 85730; 87040; 93005; 93306; 93970; 94640; 96365; 96375; 96376; 99291

== ENCOUNTER → 2020-07-31 | Outpatient (CLI) | payer OTHER ==
--- NOTE | 2020-07-31 09:44 | US ---
EXAMINATION TYPE: US venous doppler duplex LE RT DATE OF EXAM: 07/31/2020 8:50 AM COMPARISON: NONE CLINICAL HISTORY: I26.99 Pulmonary embolism, I82.431 DVT. history of DVT right leg, patient on blood thinner SIDE PERFORMED: right TECHNIQUE: The lower extremity deep venous system is examined utilizing real time linear array sonog zulema with graded compression, doppler sonography and color-flow sonography. VESSELS IMAGED: External Iliac Vein (EIV) Common Femoral Vein Deep Femoral Vein Greater Saphenous Vein * Femoral Vein Popliteal Vein Small Saphenous Vein * Proximal Calf Veins (* superficial vessels) Right Leg: no evidence of DVT IMPRESSION: Grayscale, color doppler, spectral doppler imaging performed of the deep veins of the lo wer extremities. There is normal flow, compressibility, vascular waveforms.
== END | disposition home or self-care (01) ==
LOC: RADCTMAIN 08:30
PROVIDERS: ATTEND Internal Medicine Hematology & Oncology
DX: I82.431 Acute embolism and thrombosis of right popliteal vein (principal); I26.99 Other pulmonary embolism without acute cor pulmonale

== ENCOUNTER → 2024-10-26 | Outpatient (CLI) | payer OTHER ==
--- NOTE | 2024-10-26 10:22 | CT ---
EXAMINATION TYPE: CT urogram wo/w con CT DLP: 3721 mGycm, Automated exposure control for dose reduction was used. DATE OF EXAM: 10/26/2024 10:12 AM COMPARISON: CT abdomen pelvis 02/10/2020 CLINICAL INDICATION:Male, 58 years old with history of R31.1 HEMATURIA; PHH, hematuria, history of pr ostate CA TECHNIQUE: Urogram of the abdomen and pelvis was performed before and after the administration of 100 cc of IV c ontrast Isovue 300 contrast. Delayed imaging was performed. Coronal and sagittal reformats were perfo rmed. One or more CT dose reduction strategies were utilized during this examination. 2D and 3D recon structions are performed to assist visualization of the urinary tract on a separate workstation. FINDINGS: GENITOURINARY: RIGHT KIDNEY AND URETER: No calculi. No hydronephrosis or hydroureter. Tiny 4 mm right lower pole cor tical cyst. No suspicious enhancing renal mass or other lesions. No urothelial lesions: no filling de fect, dilation, stricture or wall thickening. LEFT KIDNEY AND URETER: Nonobstructive mid kidney 3 mm calculus No hydronephrosis or hydroureter. No renal mass or other lesions. No urothelial lesions: no filling defect, dilation, stricture or wall th ickening. URINARY BLADDER: Mildly well distended. Normal, no calculi, mass or other lesions. REPRODUCTIVE: Prostate gland appears surgically absent. ABDOMEN LIVER: Unremarkable. GALLBLADDER AND BILE DUCTS: Gallbladder is surgically absent. No biliary ductal dilatation. PANCREAS: Unremarkable. SPLEEN: Unremarkable. ADRENAL GLANDS: Unremarkable. STOMACH AND BOWEL: No focal bowel wall thickening or stranding inflammatory changes. The appendix is within normal limits. No evidence of bowel obstruction. PERITONEUM: No evidence of pneumoperitoneum, free fluid, or adenopathy. VASCULATURE: No aortic aneurysm. MUSCULOSKELETAL: No acute osseous abnormalities. Mild S-shaped scoliotic curvature of the thoracolumb ar spine. Grade 1 anterolisthesis of L5 on S1 with bilateral pars defects. Mild retrolisthesis of L1 on L2, L2 on L3, L3 on L4, and L4 on L5. Multilevel degenerative disc disease. SOFT TISSUE/ABDOMINAL WALL: Left periumbilical 6 mm superficial left anterior abdominal wall metallic density. Fat filled bilateral inguinal hernias. LOWER CHEST: No significant findings. IMPRESSION: 1. No evidence of enhancing renal/urothelial neoplasm. No evidence for obstructive uropathy. Nonobstr uctive left renal 3 mm calculus. 2. Postsurgical changes from prostatectomy. [facility], , 10/26/2024 10:19 AM
== END | disposition home or self-care (01) ==
LOC: RADCTMAIN 09:10
PROVIDERS: ATTEND Urology
DX: R31.1 Benign essential microscopic hematuria (principal); Z98.890 Other specified postprocedural states; Z85.46 Personal history of malignant neoplasm of prostate
CPT/HCPCS: 74178; 74400; Q9967